=== PATIENT | male | born 1960 | race African-American/Black ===

== ENCOUNTER 2023-12-01 16:39 | Inpatient (IN) | payer BC ==
[2023-12-01] MEDS ORDERED: Aspirin Chewable 81 MG TAB ONE (17:09)
[2023-12-01] MEDS ORDERED: Aspirin 81 mg Enteric Coated Tablet ONE (17:10)
[2023-12-01] MEDS ORDERED: Heparin 25,000 UNITS/D5W 500 ml bag ONE (17:10)
[2023-12-01] MEDS ORDERED: Heparin 10,000 UNITS/ 10 ML VIAL ONE ×2 (17:10→17:22)
[2023-12-01] MEDS ORDERED: Midazolam HCl 2 mg/2 ml Vial ONE (17:22)
[2023-12-01] MEDS ORDERED: fentaNYL 50 mcg/mL 1 mL Vial ONE (17:22)
[2023-12-01] MEDS ORDERED: Verapamil 5 MG/2 ML VIAL ONE (17:22)
[2023-12-01] MEDS ORDERED: Nitroglycerin 50 MG/250 ML BOT 0 ML ONE (17:22)
[2023-12-01] MEDS ORDERED: Nitroglycerin 0.4 MG TAB 1 EACH ONE (17:29)
[2023-12-01 17:32] LABS: #Basophils Less than 0.03 10x3/uL (0.0-0.2); %Basophils 0.3 % (0.0-1.0); %Eosinophils 1.7 % (0.0-10.0); %Lymphocytes 29.2 % (21.0-51.0); %Monocytes 7.2 % (0.0-10.0); %Neutrophils 61.4 % (42.0-75.0); Hematocrit 43.4 % (42.0-52.0); Hemoglobin 14.9 g/dL (14.0-18.0); Mean Corpuscular HGB CONC 34.3 g/dL (32.0-36.0); Mean Corpuscular Hemoglobin 31.2 pg (27.0-31.0); Mean Platelet Volume 10.6 fL (7.4-10.4); Platelet Count 204 10x3/uL (130-400); Red Blood Cell (RBC) Count 4.77 mill/uL (4.70-6.10)
[2023-12-01 17:53] LABS: Troponin I 0.133 ng/mL (< 0.028)
[2023-12-01 18:02] LABS: ALT (SGPT) 29 U/L (8-55); AST (SGOT) 25 U/L (5-34); Albumin 3.9 g/dL (3.4-4.8); Alkaline Phosphatase 55 U/L (40-110); Anion Gap 14 mmol/L (10-20); BUN (Urea Nitrogen) 9 mg/dL (8.4-25.7); Bilirubin, Total 0.3 mg/dL (0.2-1.2); Calc. Creatinine Clearance 0 mL/min (70-130); Calcium 9.2 mg/dL (7.8-10.44); Carbon Dioxide 22 mmol/L (23-31); Chloride 106 mmol/L (98-107); Estimated GFR 85; Globulin 3.3 g/dL (2.4-3.5); Glucose 110 mg/dL (80-115); Potassium 3.6 mmol/L (3.5-5.1); Protein, Total 7.2 g/dL (5.8-8.1); Sodium 138 mmol/L (136-145)
[2023-12-01] MEDS ORDERED: Labetalol HCl 100 MG/20 ML VIAL ONE (18:21)
[2023-12-01] MEDS ORDERED: Acetaminophen 325 MG TAB PO PRN (19:42)
[2023-12-01 20:25] LABS: Cardiac Risk 3.7 (Less than 4.5)
[2023-12-01 20:29] LABS: Hemoglobin A1c 5.7 % (4.0-6.0)
[2023-12-01] MEDS: Atorvastatin Calcium 40 MG TAB PO SCH (20:49)
[2023-12-01] MEDS: Lisinopril 2.5 MG TAB PO SCH (20:49)
[2023-12-01] MEDS: Metoprolol Tartrate 25 MG TAB PO SCH (20:54)
[2023-12-01] MEDS ORDERED: Labetalol HCl 100 MG/20 ML VIAL SLOW IVP PRN ×2 (21:29→21:43)
[2023-12-01] MEDS: Labetalol HCl 100 MG/20 ML VIAL SLOW IVP SCH (22:15)
[2023-12-02 00:20] VITALS: BMI 45.8
[2023-12-02] MEDS ORDERED: Heparin 25,000 units/D5W 500 ML IVPB SCH (02:15)
[2023-12-02] MEDS: Heparin 10,000 UNITS/ 10 ML VIAL SLOW IVP SCH (02:17)
[2023-12-02 03:03] LABS: #Basophils 0.03 10x3/uL (0.0-0.2); %Basophils 0.4 % (0.0-1.0); %Eosinophils 2.5 % (0.0-10.0); %Lymphocytes 42.9 % (21.0-51.0); %Monocytes 8.1 % (0.0-10.0); %Neutrophils 45.8 % (42.0-75.0); Hemoglobin 13.1 g/dL (14.0-18.0); Mean Corpuscular HGB CONC 33.6 g/dL (32.0-36.0); Mean Corpuscular Hemoglobin 31.1 pg (27.0-31.0); Mean Corpuscular Volume 92.6 fL (78.0-98.0); Mean Platelet Volume 10.3 fL (7.4-10.4); Platelet Count 209 10x3/uL (130-400); RBC Distribution Width 12.8 % (11.5-14.5); Red Blood Cell (RBC) Count 4.21 mill/uL (4.70-6.10)
[2023-12-02 03:49] LABS: Anion Gap 13 mmol/L (10-20); BUN (Urea Nitrogen) 8 mg/dL (8.4-25.7); Calc. Creatinine Clearance 160 mL/min (70-130); Calcium 8.8 mg/dL (7.8-10.44); Carbon Dioxide 23 mmol/L (23-31); Chloride 109 mmol/L (98-107); Estimated GFR 88; Glucose 125 mg/dL (80-115); Potassium 3.5 mmol/L (3.5-5.1); Sodium 141 mmol/L (136-145)
[2023-12-02 05:27] LABS: PTT 138.4 sec (22.9-36.1)
[2023-12-02] MEDS: Lisinopril 2.5 MG TAB PO SCH ×2 (06:35→10:04)
[2023-12-02] MEDS: Lactated Ringer's 1,000 ML IV SCH (06:36)
[2023-12-02] MEDS: Aspirin 81 mg Enteric Coated Tablet PO SCH (07:34)
[2023-12-02] MEDS ORDERED: Iopamidol 300 61% 100 ML VIAL FS ONE (08:00)
[2023-12-02 08:02] LABS: Troponin I 19.906 ng/mL (< 0.028)
[2023-12-02] MEDS ORDERED: Aspirin 81 mg Enteric Coated Tablet PO SCH (09:00)
[2023-12-02 10:10] LABS: Critical Call Chem Troponin I RESULT DECREASING; Troponin I 17.614 ng/mL (< 0.028)
[2023-12-02] MEDS ORDERED: Verapamil 5 MG/2 ML VIAL ONE (11:07)
[2023-12-02] MEDS ORDERED: Adenosine 6 mg (2 mL) VIAL ONE (11:07)
[2023-12-02] MEDS ORDERED: Nitroglycerin 50 MG/250 ML BOT 250 ML ONE (11:08)
[2023-12-02] MEDS ORDERED: Heparin 10,000 UNITS/ 10 ML VIAL ONE ×2 (11:09→14:10)
[2023-12-02] MEDS ORDERED: fentaNYL 50 mcg/mL 1 mL Vial ONE (12:51)
[2023-12-02] MEDS ORDERED: Midazolam HCl 2 mg/2 ml Vial ONE (12:51)
[2023-12-02 13:17] LABS: Troponin I 17.002 ng/mL (< 0.028)
[2023-12-02] MEDS ORDERED: TICAGRELOR 90 MG TABLET ONE (14:01)
[2023-12-02] MEDS: Sodium Chloride 0.9% 1,000 ML IV SCH (19:14)
[2023-12-02] MEDS: Metoprolol Tartrate 25 MG TAB PO SCH (20:32)
[2023-12-02] MEDS: Lisinopril 10 MG TAB PO SCH (20:33)
[2023-12-03 04:21] LABS: #Basophils Less than 0.03 10x3/uL (0.0-0.2); %Basophils 0.1 % (0.0-1.0); %Eosinophils 1.6 % (0.0-10.0); %Lymphocytes 25.2 % (21.0-51.0); %Monocytes 9.3 % (0.0-10.0); %Neutrophils 63.4 % (42.0-75.0); Hematocrit 40.6 % (42.0-52.0); Hemoglobin 13.7 g/dL (14.0-18.0); Mean Corpuscular HGB CONC 33.7 g/dL (32.0-36.0); Mean Corpuscular Hemoglobin 31.3 pg (27.0-31.0); Mean Corpuscular Volume 92.7 fL (78.0-98.0); Mean Platelet Volume 10.8 fL (7.4-10.4); Platelet Count 200 10x3/uL (130-400); Red Blood Cell (RBC) Count 4.38 mill/uL (4.70-6.10)
[2023-12-03 04:41] LABS: ALT (SGPT) 34 U/L (8-55); AST (SGOT) 94 U/L (5-34); Albumin 3.5 g/dL (3.4-4.8); Alkaline Phosphatase 44 U/L (40-110); Anion Gap 14 mmol/L (10-20); BUN (Urea Nitrogen) 7 mg/dL (8.4-25.7); Bilirubin, Total 0.6 mg/dL (0.2-1.2); Calc. Creatinine Clearance 176 mL/min (70-130); Calcium 8.6 mg/dL (7.8-10.44); Carbon Dioxide 22 mmol/L (23-31); Chloride 108 mmol/L (98-107); Estimated GFR 97; Glucose 103 mg/dL (80-115); Potassium 3.6 mmol/L (3.5-5.1); Protein, Total 6.5 g/dL (5.8-8.1); Sodium 140 mmol/L (136-145)
[2023-12-03] MEDS ORDERED: Labetalol HCl 100 MG/20 ML VIAL SLOW IVP PRN (04:50)
[2023-12-03] MEDS ORDERED: Lisinopril 10 MG TAB PO SCH ×2 (08:36→09:00)
[2023-12-03] MEDS ORDERED: Lisinopril 5 MG TAB PO SCH (09:00)
[2023-12-03] MEDS ORDERED: Aspirin 81 mg Enteric Coated Tablet PO SCH (09:00)
[2023-12-03] MEDS: Aspirin Chewable 81 MG TAB PO SCH (10:43)
[2023-12-03] MEDS: Lisinopril 20 MG TAB PO SCH (10:43)
[2023-12-03] MEDS: Clopidogrel Bisulfate 300 MG TAB PO SCH (10:43)
[2023-12-04 04:09] LABS: #Basophils 0.03 10x3/uL (0.0-0.2); %Basophils 0.4 % (0.0-1.0); %Eosinophils 2.3 % (0.0-10.0); %Lymphocytes 29.8 % (21.0-51.0); %Monocytes 10.7 % (0.0-10.0); %Neutrophils 56.4 % (42.0-75.0); Hematocrit 40.9 % (42.0-52.0); Hemoglobin 13.8 g/dL (14.0-18.0); Mean Corpuscular HGB CONC 33.7 g/dL (32.0-36.0); Mean Corpuscular Hemoglobin 31.3 pg (27.0-31.0); Mean Corpuscular Volume 92.7 fL (78.0-98.0); Mean Platelet Volume 10.3 fL (7.4-10.4); Platelet Count 209 10x3/uL (130-400); RBC Distribution Width 13.1 % (11.5-14.5); Red Blood Cell (RBC) Count 4.41 mill/uL (4.70-6.10)
[2023-12-04 04:25] LABS: Anion Gap 12 mmol/L (10-20); BUN (Urea Nitrogen) 9 mg/dL (8.4-25.7); Calc. Creatinine Clearance 163 mL/min (70-130); Calcium 8.8 mg/dL (7.8-10.44); Carbon Dioxide 22 mmol/L (23-31); Chloride 109 mmol/L (98-107); Estimated GFR 90; Glucose 98 mg/dL (80-115); Potassium 3.6 mmol/L (3.5-5.1); Sodium 139 mmol/L (136-145)
[2023-12-04] MEDS: Clopidogrel Bisulfate 75 MG TAB PO SCH (08:15)
[2023-12-04 11:56] VITALS: BP 133/65; TEMP 97.4
== END 2023-12-04 15:20 | disposition home or self-care (01) | DRG 322 ==
LOC: ERS 16:39 → 2NO 18:42
PROVIDERS: ADMIT Family Medicine; ATTEND Family Medicine
PROC: 4A023N7 Measurement of Cardiac Sampling and Pressure, Left Heart, Percutaneous Approach (ICD-10-PCS; principal; 2023-12-02)
PROC: 027034Z Dilation of Coronary Artery, One Artery with Drug-eluting Intraluminal Device, Percutaneous Approach (ICD-10-PCS; 2023-12-02)
PROC: B2111ZZ Fluoroscopy of Multiple Coronary Arteries using Low Osmolar Contrast (ICD-10-PCS; 2023-12-02)
PROC: B2151ZZ Fluoroscopy of Left Heart using Low Osmolar Contrast (ICD-10-PCS; 2023-12-02)
PROC: B240ZZ3 Ultrasonography of Single Coronary Artery, Intravascular (ICD-10-PCS; 2023-12-02)
PROC: 5A09357 Assistance with Respiratory Ventilation, Less than 24 Consecutive Hours, Continuous Positive Airway Pressure (ICD-10-PCS; 2023-12-04)
DX: I21.4 Non-ST elevation (NSTEMI) myocardial infarction (principal); I16.1 Hypertensive emergency; Z68.42 Body mass index [BMI] 45.0-49.9, adult; I47.29 Other ventricular tachycardia; I25.110 Atherosclerotic heart disease of native coronary artery with unstable angina pectoris; I10 Essential (primary) hypertension; G47.33 Obstructive sleep apnea (adult) (pediatric); E66.01 Morbid (severe) obesity due to excess calories; Z79.899 Other long term (current) drug therapy; Z98.890 Other specified postprocedural states; Z82.49 Family history of ischemic heart disease and other diseases of the circulatory system
CPT/HCPCS: 36415; 71045; 80048; 80053; 80061; 83036; 83880; 84443; 84484; 85025; 85347; 85730; 92928; 92978; 93005; 93010; 93306; 93458; 93798; 94760; 96374; 96375; 99152; 99153; C1753; C1769; C1874; C1887; C1894; C9600; J0153; J1644; J2250; J3010; J7030; J7120; Q9967

== ENCOUNTER 2024-12-08 11:49 | Emergency (ER) | payer BC ==
[2024-12-08] MEDS ORDERED: Lidocaine 1% (PF) 30 ML VIAL ONE (11:56)
[2024-12-08] MEDS ORDERED: Boostrix 0.5 ML (Tdap) VIAL (>/=7 yrs of age) ONE (12:06)
[2024-12-08] MEDS ORDERED: Lidocaine 1% w/Epinephrine 1:100K 20 ML VIAL ONE (12:21)
== END 2024-12-08 13:07 | disposition home or self-care (01) ==
LOC: ERS 11:49
DX: S81.012A Laceration without foreign body, left knee, initial encounter (principal); I25.2 Old myocardial infarction; Z23 Encounter for immunization; W18.30XA Fall on same level, unspecified, initial encounter
CPT/HCPCS: 12001; 90471; 90715; J2003